=== PATIENT | male | born 1950 | race Caucasian/White ===

== ENCOUNTER 2016-12-17 14:16 | Emergency (ER) | payer MEDICARE, BC ==
[~2016-12-17] VITALS: Ht 175.3 cm; Wt 78.5 kg
--- NOTE | 2016-12-17 14:16 | NUR ---
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 FOREHEAD ABRASION NOTED. NEURO INTACT, AMBULATORY WITH STEADY GAIT. VSS. PENDING MD BRONSON.
--- NOTE | 2016-12-17 14:37 | NUR ---
IV ACCESSED R AC 18G. BLOOD DRAWN CALLED LAB FOR PICKUP.
[2016-12-17] MEDS ORDERED: IV SET PRIMARY 1 EA INFUS.SET MC ONE (14:44)
[2016-12-17] MEDS ORDERED: IV NS 0.9% 1,000 ML ONE (14:44)
--- NOTE | 2016-12-17 14:46 | NUR ---
PATIENT TRANSPORTED FOR CT HEAD VIA WHEELCHAIR, PATIENT APPEARS STABLE AT THIS TIME.
[2016-12-17 14:47] LABS: BASOPHILS % (AUTO) 0.3 % (0.0-2.0); EOSINOPHILS # (AUTO) 0.1 /CMM (0.0-0.7); EOSINOPHILS % (AUTO) 1.2 % (0.0-6.0); HEMATOCRIT 44 % (39-51); HEMOGLOBIN 14.6 g/dL (13.5-17.5); LYMPHOCYTES # (AUTO) 1.2 /CMM (0.8-4.8); LYMPHOCYTES % (AUTO) 17.4 % (20.0-44.0); MEAN CORPUSCULAR HEMOGLOBIN 31 PG (26.0-33.0); MEAN CORPUSCULAR HGB CONC 33 g/dl (31.0-36.0); MEAN CORPUSCULAR VOLUME 93 fL (80-96); MONOCYTES # (AUTO) 0.6 /CMM (0.1-1.30); MONOCYTES % (AUTO) 9.2 % (2.0-12.0); NEUTROPHILS % (AUTO) 71.9 % (43.0-81.0); PLATELET COUNT (AUTO) 154 /CMM (150-450); RDW COEFFICIENT OF VARIATION 12.3 (11.5-15.0); RED BLOOD CELL COUNT(AUTO) 4.76 MIL/uL (4.5-6.0); WHITE BLOOD COUNT (AUTO) 6.9 K/uL (4.3-11.0)
[2016-12-17 14:55] LABS: CALCIUM, SERUM 9.2 mg/dL (8.5-10.1); CARBON DIOXIDE 28 mmol/L (21-32); CHLORIDE 104 mmol/L (98-107); GLUCOSE 120 mg/dL (74-106); POTASSIUM 4.3 mmol/L (3.5-5.1); SODIUM SERUM 139 mmol/L (136-145); UREA NITROGEN, BLOOD 19 mg/dL (7-18)
[2016-12-17 15:00] LABS: PROTHROMBIN TIME 10.4 SECS (9.5-12.7)
[2016-12-17] MEDS ORDERED: IV NS 0.9% 1,000 ML BAG IV ONE (15:00)
--- NOTE | 2016-12-17 15:00 | NUR ---
PATIENT IS BACK TO ROOM FROM CT VIA WHEELCHAIR.
[2016-12-17 15:05] LABS: TROPONIN I < 0.017 ng/mL (0.00-0.056)
[2016-12-17] MEDS ORDERED: diphenhydrAMINE HCL 50 MG/ML VIAL ONE (16:26)
[2016-12-17] MEDS ORDERED: diphenhydrAMINE HCL 50 MG/ML VIAL IV ONE (16:30)
--- NOTE | 2016-12-17 16:48 | NUR ---
PT. IS ALLERGIC TO IODINE, DR. TITA NAYLOR IS AWARE. PRE MEDICATE HIM AROUND 1647 (BENADRYL).
[2016-12-17] MEDS ORDERED: IOHEXOL-300 100 ML VIAL IV ONE (16:50)
[2016-12-17] MEDS ORDERED: CT SWABBABLE VALVE TRANS SET 1 EA INFUS.SET MC ONE (16:50)
[2016-12-17] MEDS ORDERED: IV NS 0.9% 250 ML IV ONE (16:50)
[2016-12-17 19:11] VITALS: BP 146/89
--- NOTE | 2016-12-17 19:11 | NUR ---
IV removed. Catheter intact and site benign. Pressure and 4x4 applied to site. No bleeding noted. Patient discharged to home in stable condition. Written and verbal after care instructions given. Patient verbalizes understanding of instruction. ambulatory with a steady gait. instructed not to drive. pt verbalize understanding.
== END 2016-12-17 19:12 | disposition home or self-care (01) ==
LOC: ER 14:18
DX: S00.03XA Contusion of scalp, initial encounter (principal); R55 Syncope and collapse; M54.12 Radiculopathy, cervical region; M51.34 Other intervertebral disc degeneration, thoracic region; I71.9 Aortic aneurysm of unspecified site, without rupture; N40.0 Benign prostatic hyperplasia without lower urinary tract symptoms; I10 Essential (primary) hypertension; E03.9 Hypothyroidism, unspecified; E78.00 Pure hypercholesterolemia, unspecified; Z88.0 Allergy status to penicillin; Z88.2 Allergy status to sulfonamides; Z88.1 Allergy status to other antibiotic agents; Z88.8 Allergy status to other drugs, medicaments and biological substances; W22.8XXA Striking against or struck by other objects, initial encounter; Y93.89 Activity, other specified; Y92.002 Bathroom of unspecified non-institutional (private) residence as the place of occurrence of the external cause; Y99.9 Unspecified external cause status
CPT/HCPCS: 36415; 70450; 71010; 71275; 72125; 72128; 80048; 84484; 85025; 85730; 93005; 93307; 96361; 96374; 99285; A4606; J1200; J7030; J7050; Q9967; Z7610